=== PATIENT | male | born 1990 | race African-American/Black ===

== ENCOUNTER 2018-09-29 16:03 | Emergency (ER) | payer SELFPAY ==
[2018-09-29] MEDS ORDERED: Acetaminophen 500 MG TAB ONE (17:52)
== END 2018-09-29 18:25 | disposition home or self-care (01) ==
LOC: ERS 16:03
DX: J02.0 Streptococcal pharyngitis (principal)
CPT/HCPCS: 87081; 87430; 87804; 99283

== ENCOUNTER 2019-04-26 22:51 | Emergency (ER) | payer SELFPAY ==
[2019-04-26] MEDS ORDERED: Dexamethasone 4 MG TAB ONE (23:39)
== END 2019-04-26 23:50 | disposition home or self-care (01) ==
LOC: ERS 22:51
DX: J02.0 Streptococcal pharyngitis (principal)
CPT/HCPCS: 87430; 87804; 99283; J8540